=== PATIENT | male | born 1990 | race Asian ===

== ENCOUNTER 2024-01-22 01:45 | Outpatient (CLI) | payer MEDICARE, MEDICAID, SELFPAY ==
--- NOTE | 2024-01-22 08:08 | DI.CT_ITS ---
Exam(s) CT HEAD WO EXAM: CT HEAD WO CLINICAL HISTORY: New onset waking up with headaches,? MASS,g43.909. TECHNIQUE: Imaging Protocol: Axial computed tomography images with coronal and sagittal reformatted images were created and reviewed COMPARISON: No exams were available for comparison FINDINGS: There are no skull fractures. There is no fluid in the visualized paranasal sinuses. There is no evidence of intracranial hemorrhage, mass effect, or shift of midline structures. There are no extra-axial fluid collections. The ventricles are not enlarged or shifted and there is no blo od within the ventricular system nor within the basal cisterns. There is some subtle abnormal hypodensity in the left frontal lobe region (series 7/image 25) possibl y significant. No hemorrhage at this level nor elsewhere in the brain. IMPRESSION: Subtle abnormal hypodensity in the left frontal lobe region. Recommend follow-up MRI. RADIATION DOSE DELIVERED: 849.08mGy.cm Total DLP DATA REPOSITORY: All CT scans at this facility are submitted to the National Radiology Data Registry (NRDR) Dose Index Registry (DIR) with the [employer] ([employer]). RADIATION OPTIMIZATION: All CT scans at this facility use at least one of these dose optimization te chniques: automated exposure control; mA and/or kV adjustment per patient size (includes targeted exa ms where dose is matched to clinical indication); or iterative reconstruction.
== END 2024-01-22 02:05 ==
LOC: DI 01:45
PROVIDERS: PCP Family Medicine; Visit Provider Family Medicine
DX: G43.909 Migraine, unspecified, not intractable, without status migrainosus (principal)
CPT/HCPCS: 70450

== ENCOUNTER 2024-04-01 01:35 | Outpatient (CLI) | payer MEDICARE, MEDICAID, SELFPAY ==
--- NOTE | 2024-04-01 07:00 | DI.MRI_ITS ---
Exam(s) MR BRAIN WO EXAM: MR BRAIN WO CLINICAL HISTORY: F/U of hypodensity seen on CT scan,abnl head ct,R93.0 TECHNIQUE: Multiplanar multisequence MRI of the brain was performed. COMPARISON: CT CT HEAD WO from 01/22/2024 FINDINGS: VENTRICLES AND EXTRA AXIAL SPACES: Normal in size and morphology for the patient's age. MIDLINE SHIFT: None. CEREBRAL PARENCHYMA: No focus of restricted diffusion to suggest acute infarct. No space-occupying le keely identified. There are several foci of hyperintense signal in the white matter on the FLAIR and T 2 weighted images. HEMORRHAGE: None. BRAINSTEM/CEREBELLUM: Normal. CALVARIUM: Normal. VISUALIZED PARANASAL SINUSES/MASTOIDS:Clear. [place]: Normal flow void. PITUITARY GLAND: Unremarkable. OTHER FINDINGS: None. IMPRESSION: 1. Multiple hyperintense foci on the FLAIR and T2 weighted images in the white matter. A demyelinati ng process should be considered in this patient. Postcontrast MRI is recommended for further evaluat ion. 2. No findings to suggest an intracranial mass or acute infarct. DATA REPOSITORY:
== END 2024-04-01 01:55 ==
LOC: DI 01:35
PROVIDERS: PCP Family Medicine; Visit Provider Family Medicine
DX: R93.0 Abnormal findings on diagnostic imaging of skull and head, not elsewhere classified (principal)
CPT/HCPCS: 70551

== ENCOUNTER 2024-07-22 12:44 | Emergency (ER) | payer MEDICARE, MEDICAID, SELFPAY ==
--- NOTE | 2024-07-22 12:45 | DI.RAD_ITS ---
Exam(s) XR WRIST RT COMPLETE EXAM: XR WRIST RT COMPLETE CLINICAL HISTORY: Pain in Ulnar areaafter injury. TECHNIQUE: 2D digital imaging was performed. COMPARISON: No exams were available for comparison FINDINGS: 3 views No evidence of fracture or dislocation nor significant ulnar variance. Scaphoid and scapholunate dis tance appear unremarkable. Ulnar styloid unremarkable. There is no joint space narrowing. Bone den sity normal. No osseous lesions. IMPRESSION: No significant radiographic findings in the right wrist. DATA REPOSITORY: RADIATION DOSE DELIVERED:
[2024-07-22 12:49] VITALS: BP 121/79; PULSE 72; RESP 20; TEMP 36.7; O2SAT 98
--- NOTE | 2024-07-22 13:04 | W.ED.GENAD ---
Discharge Plan Disposition Patient Disposition: Home Condition: Stable Discharge Details Clinical Impression: Right wrist sprain Primary Care Provider: Johnny Montes De Oca ED Provider: Karla Carlos Home Meds and New Rx's Prescriptions: No Action cholecalciferol (vitamin D3) 50 mcg (2,000 unit) capsule 50 mcg PO DAILY Mounjaro 15 mg/0.5 mL pen injector 15 mg subcut QWEEK Qty: 2 6RF alfuzosin 10 mg tablet extended release 24 hr 10 mg PO DAILY Rx Instructions: administer after the same meal each day cetirizine 10 mg tablet 10 mg PO DAILY (DME) lancets Misc See Rx Instructions .Route Rx Instructions: As directed (DME) blood-glucose meter Misc See Rx Instructions .Route Rx Instructions: As directed (DME) OneTouch Verio test strips Strip See Rx Instructions .Route Rx Instructions: As directed diphenhydramine-acetaminophen [Tylenol PM Extra Strength] 25-500 mg tablet 4 tab PO QHS PRN fluoxetine 40 mg capsule 40 mg PO DAILY Qty: 90 3RF fluoxetine 10 mg capsule 10 mg PO DAILY Qty: 90 3RF losartan 25 mg tablet 25 mg PO DAILY Qty: 90 3RF pantoprazole 40 mg tablet,delayed release (DR/EC) 40 mg PO DAILY Qty: 30 11RF Jardiance 10 mg tablet 10 mg PO DAILY Qty: 90 3RF Nurtec ODT 75 mg tablet,disintegrating 75 mg PO Q OTHER DAY Qty: 45 2RF Rx Instructions: Migraine prophylaxis atorvastatin 20 mg tablet 20 mg PO DAILY Qty: 90 3RF amlodipine 10 mg tablet 10 mg PO DAILY Qty: 90 3RF metoprolol succinate 50 mg tablet extended release 24 hr 50 mg PO DAILY Qty: 90 3RF metoprolol succinate 100 mg tablet extended release 24 hr 100 mg PO DAILY Qty: 90 3RF Discharge Instructions Instructions: Wrist Sprain ED Additional Instructions: No evidence of fracture on the x-rays today. You may use Moe wrap. Rest ice compression elevation. Please take Tylenol or Ibuprofen with food every 4-6 hours as needed for pain and swelling. Follow up with primary care provider in 3-5 days. Return to ED sooner if any worsening or concerns. Referrals: Johnny Montes De Oca DO [Primary Care Provider] - Return if symptoms worsen Discharge Data Discharge Date/Time-TO BE ENTERED AT DEPARTURE: 07/22/24 14:20 HPI General Mode of arrival: ambulatory. Date/Time Provider Initiated Documentation: 07/22/24 12:58. Limitations to Documentation: no limitations. Information obtained by: patient, RN notes reviewed and old records reviewed. HPI Narrative: 34-year-old male presents to the ER with a chief complaint of right wrist pain after slamming his hand up against a wall a few days ago. He describes some ulnar area tenderness with some radiation up his forearm. No hand pain. He reports that he got a [id number] wrist splint which made the pain worse. Increased pain with pronation and supination and trying to lift items. No obvious deformity distal CMS intact. Patient has been taking Tylenol and ibuprofen with little to no relief. Related Data Home Medications ?Medication ?Instructions ?Recorded ?Confirmed alfuzosin 10 mg tablet,extended 10 mg PO DAILY 11/07/22 07/22/24 release 24 hr blood sugar diagnostic (OneTouch 11/07/22 07/22/24 Verio test strips) blood-glucose meter 11/07/22 07/22/24 cetirizine 10 mg tablet 10 mg PO DAILY 11/07/22 07/22/24 diphenhydramine 25 4 tab PO QHS PRN 11/07/22 07/22/24 mg-acetaminophen 500 mg tablet (Tylenol PM Extra Strength) lancets 11/07/22 07/22/24 cholecalciferol (vitamin D3) 50 50 mcg PO DAILY 02/16/23 07/22/24 mcg (2,000 unit) capsule fluoxetine 10 mg capsule 10 mg PO DAILY #90 caps 10/03/23 07/22/24 fluoxetine 40 mg capsule 40 mg PO DAILY #90 caps 10/03/23 07/22/24 losartan 25 mg tablet 25 mg PO DAILY #90 tabs 10/03/23 07/22/24 pantoprazole 40 mg tablet,delayed 40 mg PO DAILY #30 tabs 10/26/23 07/22/24 release empagliflozin 10 mg tablet 10 mg PO DAILY #90 tabs 02/13/24 07/22/24 (Jardiance) tirzepatide 15 mg/0.5 mL 15 mg (0.5 mL) subcut QWEEK #2 mL 03/04/24 07/22/24 subcutaneous pen injector (Magdalene) rimegepant 75 mg disintegrating 75 mg PO Q OTHER DAY #45 tabs 05/06/24 07/22/24 tablet (Nurtec ODT) amlodipine 10 mg tablet 10 mg PO DAILY #90 tabs 06/14/24 07/22/24 atorvastatin 20 mg tablet 20 mg PO DAILY #90 tabs 06/14/24 07/22/24 metoprolol succinate 100 mg 100 mg PO DAILY #90 tabs 06/14/24 07/22/24 tablet,extended release 24 hr metoprolol succinate 50 mg 50 mg PO DAILY #90 tabs 06/14/24 07/22/24 tablet,extended release 24 hr Previous Rx's ?Medication ?Instructions ?Recorded fluoxetine 10 mg capsule 10 mg PO DAILY #90 caps 10/03/23 fluoxetine 40 mg capsule 40 mg PO DAILY #90 caps 10/03/23 losartan 25 mg tablet 25 mg PO DAILY #90 tabs 10/03/23 pantoprazole 40 mg tablet,delayed 40 mg PO DAILY #30 tabs 10/26/23 release empagliflozin 10 mg tablet 10 mg PO DAILY #90 tabs 02/13/24 (Jardiance) tirzepatide 15 mg/0.5 mL 15 mg (0.5 mL) subcut QWEEK #2 mL 03/04/24 subcutaneous pen injector (Magdalene) rimegepant 75 mg disintegrating 75 mg PO Q OTHER DAY #45 tabs 05/06/24 tablet (Nurtec ODT) amlodipine 10 mg tablet 10 mg PO DAILY #90 tabs 06/14/24 atorvastatin 20 mg tablet 20 mg PO DAILY #90 tabs 06/14/24 metoprolol succinate 100 mg 100 mg PO DAILY #90 tabs 06/14/24 tablet,extended release 24 hr metoprolol succinate 50 mg 50 mg PO DAILY #90 tabs 06/14/24 tablet,extended release 24 hr Allergies Allergy/AdvReac Type Severity Reaction Status Date / Time metformin Allergy Severe Other (See Verified 07/22/24 12:52 Comment) General Stated Complaint: Orthopedic MOE: 4 Review of Systems All systems reviewed & are unremarkable except as noted in HPI and below Musculoskeletal Musculoskeletal: Reports as per HPI and Reports arthralgias Exam Extrem General: normal to inspection Right upper extremity: wrist Details: tenderness Location: of the distal ulna Course Vital Signs Vital signs: Vital Signs Temperature 36.7 C 07/22/24 12:49 Pulse 72 07/22/24 12:49 Respiratory Rate 20 07/22/24 12:49 Blood Pressure 121/79 07/22/24 12:49 Pulse Oximetry 98 07/22/24 12:49 Temperature 36.7 C 07/22/24 12:49 Pulse 72 07/22/24 12:49 Respiratory Rate 20 07/22/24 12:49 Blood Pressure 121/79 07/22/24 12:49 Blood Pressure Position Sitting 07/22/24 12:49 Pulse Oximetry 98 07/22/24 12:49 Oxygen Delivery Method Room Air 07/22/24 12:49 Oxygen Flow Rate 0 07/22/24 12:49 Medical Decision Making 34-year-old male presents to the ER with a chief complaint of right wrist pain after slamming his hand up against a wall a few days ago. He describes some ulnar area tenderness with some radiation up his forearm. No hand pain. He reports that he got a [id number] wrist splint which made the pain worse. Increased pain with pronation and supination and trying to lift items. No obvious deformity distal CMS intact. Patient has been taking Tylenol and ibuprofen with little to no relief. X-ray right wrist ordered. Negative bony abnormalities in the right wrist. Will give Moe wrap and discharged home with a sprain. This text was generated using [employer] dictation system, please disregard any oddities of phrase or misspellings. Imaging Data Radiologic Study: Imaging: X-Ray Radiologist's impression: XR WRIST RT COMPLETE EXAM: XR WRIST RT COMPLETE CLINICAL HISTORY: Pain in Ulnar areaafter injury. TECHNIQUE: 2D digital imaging was performed. COMPARISON: No exams were available for comparison FINDINGS: 3 views No evidence of fracture or dislocation nor significant ulnar variance. Scaphoid and scapholunate distance appear unremarkable. Ulnar styloid unremarkable. There is no joint space narrowing. Bone density normal. No osseous lesions. IMPRESSION: No significant radiographic findings in the right wrist. Quality:SDOH Health Related Social Needs: No Data to Display PFSH All Active Problems (Updated 07/22/24 @ 13:51 by Karla Carlos NP) Right wrist sprain (Acute) Abnormal MRI of head (Acute) Diabetic cataract of both eyes (Acute) Chronic daily headache (Acute) Periodic limb movement disorder (Acute) Mild Lower urinary tract symptoms (LUTS) (Acute) Family history of dementia (Acute) Rash and nonspecific skin eruption (Acute) Vitamin D deficiency (Acute) Type II diabetes mellitus (Acute) Temporomandibular joint disorder (Acute) Obstructive sleep apnea (Chronic) Very severe - 04/22/23 [facility] Morbid obesity (Acute) Moderate recurrent major depression (Acute) Migraine (Chronic) Lumbar radiculopathy (Acute) Hypertensive disorder (Chronic) Hyperlipidemia (Acute) High-functioning autism spectrum disorder (Acute) Generalized anxiety disorder (Acute) Herniation of lumbar intervertebral disc with radiculopathy (Acute 09/28/21) Family History Father Alcohol use disorder Leukemia Diabetes Mother Anxiety Depression Hypertension Maternal Grandmother Family history of endometriosis Diabetes Heart disease Maternal Grandfather Diabetes Paternal Grandfather Diabetes Paternal Grandmother Diabetes Aunt Diabetes Uncle Diabetes Social History Smoking/Tobacco Use Status: Never Smoking risk assessment performed?: Yes Alcohol Intake: current Details: monthly or less Drug use: Never Adopted: No Caregiver/Support person: Yes Foster care: No Housing: apartment Number of Children: 0 number of grandchildren: 0 Education Level: high school Do you need help understanding health information?: Often current occupation: none Pets and animals: Yes (1) Pets and animals: cat(s) Sexually active: Yes Do you think of yourself as: bisexual Current gender identity: male What is your relationship status?: never How often do you talk on the phone with friends or family?: three or more times per week How often do you get together with friends or relatives?: once per week Do you belong to any clubs or organized social groups?: no Panel score (0-1 are the most socially isolated patients): 1 What type of physical activity do you participate in: none Glenny/Scientologist: None Special glenny needs: No Seatbelt use: always Helmet use: Yes Drive intox or ride w/intox parcel post truck driver: No
[2024-07-22 14:19] VITALS: BP 121/79; PULSE 72; RESP 20; TEMP 36.7; O2SAT 98
== END 2024-07-22 14:20 | disposition home or self-care (01) ==
PROVIDERS: Emergency Provider Registered Nurse Emergency; PCP Family Medicine
DX: S63.501A Unspecified sprain of right wrist, initial encounter (principal); E11.9 Type 2 diabetes mellitus without complications; I10 Essential (primary) hypertension; Z79.84 Long term (current) use of oral hypoglycemic drugs; Z79.85 Long-term (current) use of injectable non-insulin antidiabetic drugs; W22.01XA Walked into wall, initial encounter; Y93.89 Activity, other specified
CPT/HCPCS: 99283; 73110

== ENCOUNTER 2024-08-12 01:27 | Outpatient (CLI) | payer MEDICARE, MEDICAID, SELFPAY ==
--- NOTE | 2024-08-12 08:15 | DI.RAD_ITS ---
Exam(s) XR WRIST RT COMPLETE EXAM: XR WRIST RT COMPLETE CLINICAL HISTORY: Wrist still painful 3 weeks after trauma,sprain,[id number]. TECHNIQUE: 2D digital imaging was performed. Three views. COMPARISON: CR XR WRIST RT COMPLETE from 07/22/2024 FINDINGS: BONES: No acute or subacute fracture is present. No bony destructive lesion is seen. JOINTS: The carpal bones are normally aligned. SOFT TISSUE: Normal. IMPRESSION: Unremarkable radiographs of the right wrist. DATA REPOSITORY: RADIATION DOSE DELIVERED:
== END 2024-08-12 01:47 ==
LOC: DI 01:27
PROVIDERS: PCP Family Medicine; Visit Provider Family Medicine
DX: S63.501D Unspecified sprain of right wrist, subsequent encounter (principal); X58.XXXD Exposure to other specified factors, subsequent encounter
CPT/HCPCS: 73110

== ENCOUNTER → 2024-09-02 12:44 | Outpatient (BNVA) | payer MEDICARE, MEDICAID, SELFPAY | PROVIDERS: PCP Family Medicine; Referring Provider Family Medicine; Visit Provider Psychiatry & Neurology Neurology | DX: G43.109 Migraine with aura, not intractable, without status migrainosus (principal); G43.009 Migraine without aura, not intractable, without status migrainosus; G44.40 Drug-induced headache, not elsewhere classified, not intractable; R93.0 Abnormal findings on diagnostic imaging of skull and head, not elsewhere classified; E11.59 Type 2 diabetes mellitus with other circulatory complications; I10 Essential (primary) hypertension; Z79.899 Other long term (current) drug therapy | CPT/HCPCS: 99215 ==

== ENCOUNTER → 2024-11-26 13:05 | Outpatient (BNVA) | payer MEDICARE, MEDICAID, SELFPAY | PROVIDERS: PCP Family Medicine; Referring Provider Family Medicine; Visit Provider Psychiatry & Neurology Neurology | DX: G43.109 Migraine with aura, not intractable, without status migrainosus (principal); G43.009 Migraine without aura, not intractable, without status migrainosus; G44.40 Drug-induced headache, not elsewhere classified, not intractable; R93.0 Abnormal findings on diagnostic imaging of skull and head, not elsewhere classified; E11.59 Type 2 diabetes mellitus with other circulatory complications; I10 Essential (primary) hypertension | CPT/HCPCS: 99214 ==